=== PATIENT | male | born 1935 | race Caucasian/White ===

== ENCOUNTER 2022-03-17 11:49 | Outpatient (CLI) | payer OTHER, SELFPAY ==
[2022-03-17 11:16] LABS: Chloride* 104 mmol/L (96-114)
[2022-03-17 11:17] LABS: Potassium* 4.1 mmol/L (3.6-5.1); Sodium* 140 mmol/L (135-149)
[2022-03-17 11:19] LABS: Cholesterol* 114 mg/dL (90-199)
[2022-03-17 11:20] LABS: Blood Urea Nitrogen* 36 mg/dL (7-30); Carbon Dioxide* 29 mmol/L (20-32); Estimated Glomerular Filt Rate 32 ml/min; Glucose* 103 mg/dL (60-115)
[2022-03-17 11:21] LABS: Calcium* 9.1 mg/dL (8.4-10.6); HDL Cholesterol* 41 mg/dL (>=40); LDL Cholesterol Calculated 59 mg/dL (<100); Triglycerides* 68 mg/dL (40-149)
== END 2022-03-17 11:50 | disposition home or self-care (01) ==
PROVIDERS: PCP Internal Medicine; Visit Provider Internal Medicine
DX: I10 Essential (primary) hypertension (principal); Z13.6 Encounter for screening for cardiovascular disorders
CPT/HCPCS: 80048; 80061